=== PATIENT | male | born 1985 | race Caucasian/White ===

== ENCOUNTER 2016-06-15 01:41 | Emergency (ER) | payer OTHER ==
--- NOTE | 2016-06-15 04:12 | ED ORDER SUMMARY ---
..... Patient: AUSTIN CHERRY OrderSheet [facility] VisitID: [id number] [place] [address] 30y, M Registration Date/Time: 06/15/2016 ORDER SHEET Weight: 86.1 kg (stated) Allergies: No Known Drug Allergy GENERAL ORDERS: CBC w Diff Urgent (01:52 06/15/2016 Natalie Hernandez) (Ack 1:55 PWeiler ER Tech1) (2:32 PWeiler ER Tech1) CMP Urgent (01:52 06/15/2016 Natalie Hernandez) (Ack 1:55 PWeiler ER Tech1) (2:32 PWeiler ER Tech1) UA-Culture if indicated Urgent (:06/15/2016 Natalie Hernandez) (Ack 1:55 PWeiler ER Tech1) (2:32 PWeiler ER Tech1) CT Abd/Pel wo Cont Urgent (02:48 06/15/2016 Natalie Hernandez) (Ack 2:50 PWeiler ER Tech1) (3:06 Suzanna) MEDICATION ORDERS: Levofloxacin PO 500 mg (NOW) (03:26 06/15/2016 Natalie Hernandez) (Ack 3:30 HSoule) (3:34 HSoule) IV FLUIDS: IV NS : initial bolus none -, then 1000 mL/hr for X1 (NOW) (01:52 06/15/2016 Nataile Hernandez) (Ack 2:12 HSoule) (2:13 HSoule) Toradol IV 30 mg (NOW) (:52 06/15/2016 Natalie Hernandez) (Ack 2:12 HSoule) (2:13 HSoule) Zofran IV 4 mg (NOW) (02:01 06/15/2016 Natalie Hernandez) (Ack 2:12 HSoule) (2:13 HSoule) ORDER SHEET NOTES: [Electronically signed by Karl Linares Dr. (03:45 06/15/2016)] [Electronically signed by Danyell Gill (04:53 06/15/2016)] [Electronically locked/signed by Danyell Gill (04:53 06/15/2016)]
--- NOTE | 2016-06-15 04:12 | ED CLINICAL REPORT ---
Clinical Report - Physicians/Mid Levels [facility] [address] [place] [address] 06/15/2016 1:43 Patient: AUSTIN CHERRY Time Seen: 01:47; initial patient contact. Arrived- By private vehicle. Historian- patient. HISTORY OF PRESENT ILLNESS Chief Complaint: FLANK PAIN. At its maximum, severity described as moderate. When seen in the E.D., severity described as moderate. Modifying factors. Not worsened by anything. Not relieved by anything. It is described as "pain" and it is described as located in the right flank and radiating to the groin. This started last night and is still present and worsening. It was abrupt in onset and has been intermittent. The patient has had nausea and loss of appetite. No vomiting or diarrhea. No recent travel. Similar symptoms previously: Many times. Recent medical care: Not recently seen/assessed. REVIEW OF SYSTEMS No difficulty with urination, urinary frequency, fever, chills or hematuria. He has had pain on urination. All systems otherwise negative, except as recorded above. PAST HISTORY Corneal Abrasion. Hypertension. Ureterolithiasis. Urinary Calculi. Nephrolithiasis. Corneal Foreign Body. Eye Injury. ADDITIONAL SURGERIES: Head surgery. SOCIAL HISTORY Never smoker. No alcohol use or drug use. ADDITIONAL NOTES The nursing notes have been reviewed. PHYSICAL EXAM Vital Signs: 06/15/2016 01:49 BP: 137/87. HR: 66. RR: 20. O2 saturation: 100%. Temp: 97.9 F. Pain level now: 6/10. Have been reviewed as normal. Appearance: Alert. Oriented X3. No acute distress. Eyes: Eyes normal inspection. ENT: Dry mucous membranes present. CVS: Normal heart rate and rhythm. Heart sounds normal. Respiratory: No respiratory distress. Breath sounds normal. Abdomen: Soft. Moderate tenderness in the right side of the abdomen. No guarding, rebound tenderness or Davis's sign present. Bowel sounds normal. No organomegaly. No mass. Back: Mild CVA tenderness on the right. Skin: Skin warm and dry. Normal skin color. No rash. Extremities: No lower extremity edema. Neuro: Oriented X 3. LABS, X-RAYS, AND EKG Abdominal CT: R hydroureteronephrosis w/ 1-2 mm UVJ stone w/ perinephric fat stranding. Study type: renal stone evaluation. Abdominal CT performed without contrast. The study was independently viewed by me, interpreted by the radiologist and discussed with the radiologist. Prior studies were not available for comparison. Interpretation time: 03:22. Laboratory Tests: UA-Culture if indicated: (BLANCA: 06/15/2016 02:00) ( MsgRcvd 06/15/2016 02:18) Final results Test Result Flag Units (Reference) URINE COLOR YELLOW URINE APPEARANCE CLEAR URINE GLUCOSE NEGATIVE (NEGATIVE) URINE BILIRUBIN NEGATIVE (NEGATIVE) URINE KETONE NEGATIVE (NEGATIVE) URINE SPECIFIC GRAVITY 1.020 (1.010-1.030) URINE PH 6.5 (5.0-8.0) URINE PROTEIN NEGATIVE (NEGATIVE) URINE UROBILINOGEN 0.2 EU/dL (0.2-1.0) URINE NITRITE NEGATIVE (NEGATIVE) URINE BLOOD NEGATIVE (NEGATIVE) URINE LEUK ESTERASE NEGATIVE (NEGATIVE) URINE RBC NONE SEEN rbc/hpf (0-1) URINE WBC RARE wbc/hpf (0-1) URINE EPITHELIAL CELLS NONE SEEN EPI/hpf (0-5) URINE BACTERIA NONE SEEN (NONE SEEN) URINE COMMENT CULT NOT INDICATED URINE CULTURES ARE SET-UP BASED ON THE FOLLOWING CRITERIA:POSITIVE NITRITEPOSITIVE LEUKOCYTE ESTERASEGREATER THAN 10 WHITE BLOOD CELLSMODERATE (2+) OR GREATER BACTERIA CBC w Diff: (BLANCA: 06/15/2016 02:05) ( MsgRcvd 06/15/2016 02:21) Final results Test Result Flag Units (Reference) WHITE BLOOD COUNT 9.2 K/uL (4.5-11.5) RED BLOOD COUNT 4.59 M/uL (4.50-5.90) HEMOGLOBIN 14.4 gm/dL (13.5-17.5) HEMATOCRIT 41.9 % (41.0-53.0) MEAN CELL VOLUME 91 fL (80-100) MEAN CORPUSCULAR HGB 31 pg (26-34) MEAN CORPUSCULAR HGB CONC 34 g/dL (31-37) RED CELL DISTRIBUTION WIDTH 12.8 % (11.6-14.8) PLATELET COUNT 199 K/uL (150-400) NEUTROPHIL % 68.7 % (50-75) LYMPH % 20.6 L % (25-40) MONO % 7.1 % (3-14) EOSINOPHIL % 3.3 % (0-4) BASOPHIL % 0.3 % (0-2) CMP: (BLANCA: 06/15/2016 02:05) ( MsgRcvd 06/15/2016 02:33) Final results Test Result Flag Units (Reference) GLUCOSE 147 H mg/dL (70-110) BUN 20 H mg/dL (7-18) CREATININE 1.2 mg/dL (0.6-1.3) Estimated GFR >60 mL/min Estimated GFR- >60 mL/min Note: Persistent reduction over 3 months in eGFR<60 mL/min/1.73 m2 defines CKD. Patients with eGFR values>=60 mL/min/1.73 m2 may also have CKD if evidence ofpersistent proteinuria. Additional information may be foundat www.kidney.org. SODIUM 138 mmol/L (136-145) POTASSIUM 3.2 L mmol/L (3.5-5.1) CHLORIDE 101 mmol/L (98-107) CARBON DIOXIDE 27 mmol/L (21-32) CALCIUM 8.5 mg/dL (8.5-10.1) TOTAL PROTEIN 6.9 g/dL (6.4-8.2) ALBUMIN 3.9 g/dL (3.3-5.0) BILIRUBIN, TOTAL 0.9 mg/dL (0.0-1.0) ALKALINE PHOSPHATASE 80 U/L (46-116) AST (SGOT) 18 U/L (15-37) ALT (SGPT) 34 U/L (12-78) . CLINICAL IMPRESSION Ureterolithiasis (single stone) in the right ureter with renal colic and acute pyelonephritis. INSTRUCTIONS Your Current Medications: CONTINUE TAKING THE FOLLOWING MEDICATIONS: None*. Prescription Medications: Hydrocodone/APAP 5mg / 325mg: take 1 orally every 6 hours as needed for pain. Dispense fifteen (15). No refill. Zofran (orally disintegrating tablets) 4 mg: take 1 orally every 6 hours as needed for nausea and vomiting. Dispense ten (10). No refill. Substitution is permissible. Levaquin 500 mg: take 1 tab orally every day for 6 days. No refills. Substitution is permissible. Follow-up: Screening today revealed the patient's blood pressure to be in the pre-hypertensive range. The patient should follow up with a primary care provider for blood pressure management. Follow-up with: [facility], [facility], , [address] [place] [address], [address] [place] [address] Follow up in about three days. Call for an appointment. (Electronically signed by Karl Linares Dr. 06/15/2016 3:45)
--- NOTE | 2016-06-15 04:12 | ED CLINICAL REPORT ---
Clinical Report - Physicians/Mid Levels [facility] [address] [place] [address] 06/15/2016 1:43 Patient: AUSTIN CHERRY Time Seen: 01:47; initial patient contact. Arrived- By private vehicle. Historian- patient. HISTORY OF PRESENT ILLNESS Chief Complaint: FLANK PAIN. At its maximum, severity described as moderate. When seen in the E.D., severity described as moderate. Modifying factors. Not worsened by anything. Not relieved by anything. It is described as "pain" and it is described as located in the right flank and radiating to the groin. This started last night and is still present and worsening. It was abrupt in onset and has been intermittent. The patient has had nausea and loss of appetite. No vomiting or diarrhea. No recent travel. Similar symptoms previously: Many times. Recent medical care: Not recently seen/assessed. REVIEW OF SYSTEMS No difficulty with urination, urinary frequency, fever, chills or hematuria. He has had pain on urination. All systems otherwise negative, except as recorded above. PAST HISTORY Corneal Abrasion. Hypertension. Ureterolithiasis. Urinary Calculi. Nephrolithiasis. Corneal Foreign Body. Eye Injury. ADDITIONAL SURGERIES: Head surgery. SOCIAL HISTORY Never smoker. No alcohol use or drug use. ADDITIONAL NOTES The nursing notes have been reviewed. PHYSICAL EXAM Vital Signs: 06/15/2016 01:49 BP: 137/87. HR: 66. RR: 20. O2 saturation: 100%. Temp: 97.9 F. Pain level now: 6/10. Have been reviewed as normal. Appearance: Alert. Oriented X3. No acute distress. Eyes: Eyes normal inspection. ENT: Dry mucous membranes present. CVS: Normal heart rate and rhythm. Heart sounds normal. Respiratory: No respiratory distress. Breath sounds normal. Abdomen: Soft. Moderate tenderness in the right side of the abdomen. No guarding, rebound tenderness or Davis's sign present. Bowel sounds normal. No organomegaly. No mass. Back: Mild CVA tenderness on the right. Skin: Skin warm and dry. Normal skin color. No rash. Extremities: No lower extremity edema. Neuro: Oriented X 3. LABS, X-RAYS, AND EKG Abdominal CT: R hydroureteronephrosis w/ 1-2 mm UVJ stone w/ perinephric fat stranding. Study type: renal stone evaluation. Abdominal CT performed without contrast. The study was independently viewed by me, interpreted by the radiologist and discussed with the radiologist. Prior studies were not available for comparison. Interpretation time: 03:22. Laboratory Tests: UA-Culture if indicated: (BLANCA: 06/15/2016 02:00) ( MsgRcvd 06/15/2016 02:18) Final results Test Result Flag Units (Reference) URINE COLOR YELLOW URINE APPEARANCE CLEAR URINE GLUCOSE NEGATIVE (NEGATIVE) URINE BILIRUBIN NEGATIVE (NEGATIVE) URINE KETONE NEGATIVE (NEGATIVE) URINE SPECIFIC GRAVITY 1.020 (1.010-1.030) URINE PH 6.5 (5.0-8.0) URINE PROTEIN NEGATIVE (NEGATIVE) URINE UROBILINOGEN 0.2 EU/dL (0.2-1.0) URINE NITRITE NEGATIVE (NEGATIVE) URINE BLOOD NEGATIVE (NEGATIVE) URINE LEUK ESTERASE NEGATIVE (NEGATIVE) URINE RBC NONE SEEN rbc/hpf (0-1) URINE WBC RARE wbc/hpf (0-1) URINE EPITHELIAL CELLS NONE SEEN EPI/hpf (0-5) URINE BACTERIA NONE SEEN (NONE SEEN) URINE COMMENT CULT NOT INDICATED URINE CULTURES ARE SET-UP BASED ON THE FOLLOWING CRITERIA:POSITIVE NITRITEPOSITIVE LEUKOCYTE ESTERASEGREATER THAN 10 WHITE BLOOD CELLSMODERATE (2+) OR GREATER BACTERIA CBC w Diff: (BLANCA: 06/15/2016 02:05) ( MsgRcvd 06/15/2016 02:21) Final results Test Result Flag Units (Reference) WHITE BLOOD COUNT 9.2 K/uL (4.5-11.5) RED BLOOD COUNT 4.59 M/uL (4.50-5.90) HEMOGLOBIN 14.4 gm/dL (13.5-17.5) HEMATOCRIT 41.9 % (41.0-53.0) MEAN CELL VOLUME 91 fL (80-100) MEAN CORPUSCULAR HGB 31 pg (26-34) MEAN CORPUSCULAR HGB CONC 34 g/dL (31-37) RED CELL DISTRIBUTION WIDTH 12.8 % (11.6-14.8) PLATELET COUNT 199 K/uL (150-400) NEUTROPHIL % 68.7 % (50-75) LYMPH % 20.6 L % (25-40) MONO % 7.1 % (3-14) EOSINOPHIL % 3.3 % (0-4) BASOPHIL % 0.3 % (0-2) CMP: (BLANCA: 06/15/2016 02:05) ( MsgRcvd 06/15/2016 02:33) Final results Test Result Flag Units (Reference) GLUCOSE 147 H mg/dL (70-110) BUN 20 H mg/dL (7-18) CREATININE 1.2 mg/dL (0.6-1.3) Estimated GFR >60 mL/min Estimated GFR- >60 mL/min Note: Persistent reduction over 3 months in eGFR<60 mL/min/1.73 m2 defines CKD. Patients with eGFR values>=60 mL/min/1.73 m2 may also have CKD if evidence ofpersistent proteinuria. Additional information may be foundat www.kidney.org. SODIUM 138 mmol/L (136-145) POTASSIUM 3.2 L mmol/L (3.5-5.1) CHLORIDE 101 mmol/L (98-107) CARBON DIOXIDE 27 mmol/L (21-32) CALCIUM 8.5 mg/dL (8.5-10.1) TOTAL PROTEIN 6.9 g/dL (6.4-8.2) ALBUMIN 3.9 g/dL (3.3-5.0) BILIRUBIN, TOTAL 0.9 mg/dL (0.0-1.0) ALKALINE PHOSPHATASE 80 U/L (46-116) AST (SGOT) 18 U/L (15-37) ALT (SGPT) 34 U/L (12-78) . CLINICAL IMPRESSION Ureterolithiasis (single stone) in the right ureter with renal colic and acute pyelonephritis. INSTRUCTIONS Your Current Medications: CONTINUE TAKING THE FOLLOWING MEDICATIONS: None*. Prescription Medications: Hydrocodone/APAP 5mg / 325mg: take 1 orally every 6 hours as needed for pain. Dispense fifteen (15). No refill. Zofran (orally disintegrating tablets) 4 mg: take 1 orally every 6 hours as needed for nausea and vomiting. Dispense ten (10). No refill. Substitution is permissible. Levaquin 500 mg: take 1 tab orally every day for 6 days. No refills. Substitution is permissible. Follow-up: Screening today revealed the patient's blood pressure to be in the pre-hypertensive range. The patient should follow up with a primary care provider for blood pressure management. Follow-up with: [facility], [facility], , [address] [place] [address], [address] [place] [address] Follow up in about three days. Call for an appointment. (Electronically signed by Karl Linares Dr. 06/15/2016 3:45)
--- NOTE | 2016-06-15 04:12 | ED NURSING NOTES ---
Clinical Report - Nurses [facility] [place] [address] 06/15/2016 1:43 Patient: AUSTIN CHERRY TRIAGE Triage time 01:49 Jun 15 2016. Acuity: LEVEL 3. Chief Complaint: PAIN WITH URINATION and (Right flank pain). 01:53 06/15/16. SEPSIS SCREEN: Sepsis Screen: negative. Negative (no infection suspected/documented). NYASIA COMA SCORE: Nyasia Coma Scale: 15- eyes open spontaneously (4); best verbal response- oriented x 4 (5); best motor response- obeys commands (6). --01:53 Danyell Gill 01:49 06/15/16. BP: 137/87. HR: 66. RR: 20. O2 saturation: 100% on room air. Temp: 97.9 F (oral). Pain level now: 07/28. --01:53 Danyell Gill. Weight: 86.1 kg stated. Height/Length: 73 inches Per Patient. BMI: 25. --01:52 Danyell Gill. Medications None. --01:51 Danyell Gill. Medication/allergy information source: the patient. --01:53 Danyell Gill. Allergies No Known Drug Allergy. --01:51 Danyell Gill. History Arrived by private vehicle. Historian: patient. Unaccompanied. Primary physician (none). This started today. ( Patient reported around 6 pm he began having some right flank pain and lower back pain. He reports burning when he urinates. He reports history of kidney stones. He also states he feels a bit shaky). He has had discomfort with urination. PAST MEDICAL HX: Immunizations: up-to-date. SOCIAL HX: Never smoker. No alcohol use or drug use. No infectious disease exposure. ABUSE ASSESSMENT: No report of abuse. --01:53 Danyell Gill FALL RISK ASSESSMENT: Fall risk assessment completed. No fall risk identified. NUTRITIONAL RISK ASSESSMENT: The nutritional risk assessment revealed no deficiencies. FUNCTIONAL ASSESSMENT: Functional assessment: no impairments noted. LEARNING NEEDS ASSESSMENT: The learning needs assessment revealed no barriers. SKIN INTEGRITY ASSESSMENT: Skin integrity risk assessment completed. No skin integrity risk identified. --:53 Danyell Gill. PROBLEMS: Corneal Abrasion. Hypertension. Ureterolithiasis. Urinary Calculi. Nephrolithiasis. Corneal Foreign Body. Eye Injury. Immunizations. --01:52 Jairo Danyell. ADDITIONAL SURGERIES: Head surgery. --01:52 Danyell Gill. Interventions ID band on patient. To treatment room. --:53 JairoYaakovDanyell. PHYSICAL ASSESSMENT Ambulatory to room. Patient gowned. GENERAL / NEURO / PSYCH: Alert. Oriented X 4. Appears in no acute distress. HEENT: Mucous membranes are pink. RESPIRATORY: Respirations not labored. CVS: Normal heart rate and rhythm. GI / : Abdomen soft. SKIN: Skin is warm and dry. BACK: ( Right lumbar region tenderness). --:54 JairoDanyell white. NURSING PROGRESS NOTES :54 06/15/16. Pulse oximeter and NIBP monitor placed on patient; monitor alarms on. Patient gowned. Reassurance given to the patient. Two patient identifiers checked. Call light placed in reach. Side rails up x 1. Bed placed in lowest position. Brakes of bed on. Patient ready for evaluation- chart flagged and ED physician notified. --:54 Danyell Gill Patient ID band checked for patient name and birthdate: patient confirmed. Instructions provided to collect clean catch urine and patient verbalized understanding. Clean catch urine collected with return of yellow-colored clear urine; sample sent to lab for urinalysis and culture. Specimen labeled in the presence of the patient. --01:54 Yaakov Gillnah :58 06/15/2016 Started bag #1 1000 mL IV Fluids IV NS (Saline); at 1000 mL/hr over 1 hour(s) via site #1. Allergies verified and confirmed 5 rights. IV patency established. IV site checked: no pain, redness, or swelling. IV flushed thoroughly pre- and post-medication administration. --02:13 Jairo Danyell :58 06/15/2016 Toradol IVP 30 mg given over 1 minute(s) via site #1. Allergies verified and confirmed 5 rights. IV patency established. IV site checked: no pain, redness, or swelling. IV flushed thoroughly pre- and post-medication administration. IVP given by RN. --02:13 Danyell Gill 01:58 06/15/2016 Zofran (Ondansetron HCl) IVP 4 mg given over 1 minute(s) via site #1. Allergies verified and confirmed 5 rights. IV patency established. IV site checked: no pain, redness, or swelling. IV flushed thoroughly pre- and post-medication administration. IVP given by RN. --02:13 Danyell Gill 02:03 06/15/2016 Site #1 started via IV in the right antecubital space with an 20g angiocath, with aseptic technique and good blood return; one attempt. Blood drawn: rainbow set. Labeled in the presence of the patient and sent to the lab. Saline lock flushed with 10 mL saline. --02:13 Danyell Gill 03:34 06/15/2016 Levofloxacin PO Tablets 500 mg given. Allergies verified and confirmed 5 rights. --03:34 Danyell Gill 03:34 06/15/16. BP: 124/88. HR: 65. RR: 20. O2 saturation: 99%. Pain level now: 03/30. --03:35 Danyell Gill 04:00 06/15/2016 IV Fluids IV NS Discontinued: bag #1 completed. Total amount infused: 1000 mL. IV patency established. IV site checked: no pain, redness, or swelling. IV flushed thoroughly. --04:52 Danyell Gill. DISPOSITION / DISCHARGE 04:10 06/15/16. BP: 122/80. HR: 74. RR: 20. O2 saturation: 100% on room air. Temp: 97.6 F (oral). Pain level now: 03/30. --04:52 Danyell Gill 04:00 06/15/2016 Site #1 removed upon discharge. Catheter intact. Bandaid applied. --04:52 Danyell Gill 04:10 06/15/16. Condition at departure: stable. The goals identified in the patient's plan of care were met. No learning barriers present. Discharge instructions provided and reviewed. Reviewed warnings (Do not drive while on sedative medications). Reviewed medication(s) side effects, precautions, dosing and course information. Prescription(s) given to the patient. Reviewed need for increased fluid intake. Patient verbalized understanding. Written instructions provided in Spanish. ( Follow up with [facility] in three days, contact information provided. Return if symptoms worsen. Rest and drink plenty of fluids. Patient verbalized understanding and had no additional questions at this time.). The patient was discharged by the physician. He was discharged home and unaccompanied at time of discharge. He left the Emergency Department ambulatory and via private vehicle. Patient driving. FALL RISK ASSESSMENT: Fall risk assessment completed. No fall risk identified. --04:52 Danyell Gill. Locked/Released at 06/15/2016 4:53 by Danyell Gill,
--- NOTE | 2016-06-15 04:12 | ED ORDER SUMMARY ---
..... Patient: AUSTIN CHERRY OrderSheet [facility] VisitID: [id number] [place] [address] 30y, M Registration Date/Time: 06/15/2016 ORDER SHEET Weight: 86.1 kg (stated) Allergies: No Known Drug Allergy GENERAL ORDERS: CBC w Diff Urgent (01:52 06/15/2016 Natalie Hernandez) (Ack 1:55 PWeiler ER Tech1) (2:32 PWeiler ER Tech1) CMP Urgent (01:52 06/15/2016 Natalie Hernandez) (Ack 1:55 PWeiler ER Tech1) (2:32 PWeiler ER Tech1) UA-Culture if indicated Urgent (:06/15/2016 Natalie Hernandez) (Ack 1:55 PWeiler ER Tech1) (2:32 PWeiler ER Tech1) CT Abd/Pel wo Cont Urgent (02:48 06/15/2016 Natalie Hernandez) (Ack 2:50 PWeiler ER Tech1) (3:06 Suzanna) MEDICATION ORDERS: Levofloxacin PO 500 mg (NOW) (03:26 06/15/2016 Natalie Hernandez) (Ack 3:30 HSoule) (3:34 HSoule) IV FLUIDS: IV NS : initial bolus none -, then 1000 mL/hr for X1 (NOW) (01:52 06/15/2016 Natalie Hernandez) (Ack 2:12 HSoule) (2:13 HSoule) Toradol IV 30 mg (NOW) (:52 06/15/2016 Natalie Hernandez) (Ack 2:12 HSoule) (2:13 HSoule) Zofran IV 4 mg (NOW) (02:01 06/15/2016 Natalie Hernandez) (Ack 2:12 HSoule) (2:13 HSoule) ORDER SHEET NOTES: [Electronically signed by Kalr Linares Dr. (03:45 06/15/2016)] [Electronically signed by Danyell Gill (04:53 06/15/2016)] [Electronically locked/signed by Danyell Gill (04:53 06/15/2016)]
--- NOTE | 2016-06-15 04:53 | ED DISCHARGE INSTRUCTIONS ---
Patient: AUSTIN CHERRY General Instructions [facility] VisitID: [id number] [place] [id number] 30y, M Registration Date/Time: 06/15/2016 Ureterolithiasis (single stone) in the right ureter with renal colic and acute pyelonephritis. INSTRUCTIONS Your Current Medications: CONTINUE TAKING THE FOLLOWING MEDICATIONS: None*. Prescription Medications: Hydrocodone/APAP 5mg / 325mg: take 1 orally every 6 hours as needed for pain. Dispense fifteen (15). No refill. Zofran (orally disintegrating tablets) 4 mg: take 1 orally every 6 hours as needed for nausea and vomiting. Dispense ten (10). No refill. Substitution is permissible. Levaquin 500 mg: take 1 tab orally every day for 6 days. No refills. Substitution is permissible. Follow-up: Screening today revealed the patient's blood pressure to be in the pre-hypertensive range. The patient should follow up with a primary care provider for blood pressure management. Follow-up with: [facility], [facility], , [address] [place] [address], [address], [place] [id number] Follow up in about three days. Call for an appointment. ADDITIONAL INFORMATION Kidney Stone (W/ Colic) The sharp cramping pain and nausea/vomiting that you have is due to a small stone which has formed in the kidney and is now passing down a narrow tube (ureter) on its way to your bladder. Once it reaches your bladder, the pain will stop. The stone may pass in your urine stream in one piece. [The size may be 1/16" to 1/4" (1-6mm)]. Or, the stone may also break up into corin fragments which you may not even notice. Once you have had a kidney stone, you are at risk for developing another one in the future. Home Care: Drink plenty of fluids (at least 8 to 10 glasses of water a day). Most stones will pass on their own, but may take from a few hours to a few days. Sometimes the stone is too large to pass by itself and special methods will have to be used to remove the stone. Each time you urinate, do so in a jar. Pour the urine from the jar through the strainer and into the toilet. Continue doing this until 24 hours after your pain stops. By then, if there was a kidney stone, it should pass from your bladder. Some stones dissolve into sand-like particles and pass right through the strainer. In that case, you wont ever see a stone. Save any stone that you find in the strainer and bring it to your doctor for analysis. It may be possible to prevent certain types of stones from forming. Therefore, it is important to know what kind of stone you have. Try to stay as active as possible since this will help the stone pass. Do not stay in bed unless your pain prevents you from getting up. You may notice a red, pink or brown color to your urine. This is normal while passing a kidney stone. Follow Up with your doctor or return to this facility if the pain lasts more than 48 hours. Get Prompt Medical Attention if any of the following occur: Pain that is not controlled by the medicine given Repeated vomiting or unable to keep down fluids Weakness, dizziness or fainting Fever of 100.4F (38C) or higher, or as directed by your healthcare provider Passage of solid red or brown urine (can't see through it) or urine with lots of blood clots Unable to pass urine for 8 hours and increasing bladder pressure Kidney Infection [Adult, Female] An infection of the kidney is also called "pyelonephritis". It usually starts as a bladder infection ("cystitis") which spreads to the kidneys. Pyelonephritis is more serious than a bladder infection. It can cause severe illness if not treated properly. The usual symptoms include an aching pain in the back, side or lower abdomen. Other symptoms may include fever, chills, nausea, vomiting, an urge to urinate and a burning sensation when passing urine. Home Care: Stay home from work or school. Rest in bed until your fever breaks and you are feeling better. Drink lots of fluid (at least 6-8 glasses a day, unless you must restrict fluids for other medical reasons). This will force the medicine into your urinary system and flush the bacteria out of your body. Avoid sexual intercourse until you have finished all of your medicine and your symptoms have gone away. Avoid caffeine, alcohol and spicy foods which may irritate the kidney and bladder. You may use acetaminophen (Tylenol) or ibuprofen (Motrin, Advil) to control pain, unless another pain medicine was prescribed. [NOTE: If you have chronic liver or kidney disease or ever had a stomach ulcer or GI bleeding, talk with your doctor before using these medicines.] Follow Up with your doctor or as advised by our staff for a repeat urine test in 10 days. This will ensure that your infection is fully cleared. [NOTE: If you had an X-ray or CT scan, it will be reviewed by a specialist. You will be notified of any new findings that may affect your care.] Get Prompt Medical Attention if any of the following occur: Fever over 100.4F (38.0C) after 48 hours of treatment No improvement by the third day of treatment Increasing back or abdominal pain Repeated vomiting or inability to take oral medicine Weakness, dizziness or fainting Hydrocodone Bitartrate, Acetaminophen Oral tablet What is this medicine? ACETAMINOPHEN; HYDROCODONE (a set a GERARDO natalie fen; jordan droe KOE done) is a pain reliever. It is used to treat mild to moderate pain. How should I use this medicine? Take this medicine by mouth. Swallow it with a full glass of water. Follow the directions on the prescription label. If the medicine upsets your stomach, take the medicine with food or milk. Do not take more than you are told to take. Talk to your traffic analysis technician regarding the use of this medicine in children. This medicine is not approved for use in children. What side effects may I notice from receiving this medicine? Side effects that you should report to your doctor or health direct support professional caregiver as soon as possible: allergic reactions like skin rash, itching or hives, swelling of the face, lips, or tongue breathing problems confusion feeling faint or lightheaded, falls stomach pain yellowing of the eyes or skin Side effects that usually do not require medical attention (report to your doctor or health direct support professional caregiver if they continue or are bothersome): nausea, vomiting stomach upset What may interact with this medicine? alcohol antihistamines isoniazid medicines for depression, anxiety, or psychotic disturbances medicines for sleep muscle relaxants naltrexone narcotic medicines (opiates) for pain phenobarbital ritonavir tramadol What if I miss a dose? If you miss a dose, take it as soon as you can. If it is almost time for your next dose, take only that dose. Do not take double or extra doses. Where should I keep my medicine? Keep out of the reach of children. This medicine can be abused. Keep your medicine in a safe place to protect it from theft. Do not share this medicine with anyone. Selling or giving away this medicine is dangerous and against the law. Store at room temperature between 15 and 30 degrees C (59 and 86 degrees F). Protect from light. Keep container tightly closed. Throw away any unused medicine after the expiration date. Discard unused medicine and used packaging carefully. Pets and children can be harmed if they find used or lost packages. What should I tell my health care provider before I take this medicine? They need to know if you have any of these conditions: brain tumor Crohn's disease, inflammatory bowel disease, or ulcerative colitis drink more than 3 alcohol-containing drinks per day drug abuse or addiction head injury heart or circulation problems kidney disease or problems going to the bathroom liver disease lung disease, asthma, or breathing problems an unusual or allergic reaction to acetaminophen, hydrocodone, other opioid analgesics, other medicines, foods, dyes, or preservatives or trying to get breast-feeding What should I watch for while using this medicine? Tell your doctor or health direct support professional caregiver if your pain does not go away, if it gets worse, or if you have new or a different type of pain. You may develop tolerance to the medicine. Tolerance means that you will need a higher dose of the medicine for pain relief. Tolerance is normal and is expected if you take the medicine for a long time. Do not suddenly stop taking your medicine because you may develop a severe reaction. Your body becomes used to the medicine. This does NOT mean you are addicted. Addiction is a behavior related to getting and using a drug for a non-medical reason. If you have pain, you have a medical reason to take pain medicine. Your doctor will tell you how much medicine to take. If your doctor wants you to stop the medicine, the dose will be slowly lowered over time to avoid any side effects. You may get drowsy or dizzy when you first start taking the medicine or change doses. Do not drive, use machinery, or do anything that may be dangerous until you know how the medicine affects you. Stand or sit up slowly. There are different types of narcotic medicines (opiates) for pain. If you take more than one type at the same time, you may have more side effects. Give your health care provider a list of all medicines you use. Your doctor will tell you how much medicine to take. Do not take more medicine than directed. Call emergency for help if you have problems breathing. The medicine will cause constipation. Try to have a bowel movement at least every 2 to 3 days. If you do not have a bowel movement for 3 days, call your doctor or health direct support professional caregiver. Too much acetaminophen can be very dangerous. Do not take Tylenol (acetaminophen) or medicines that contain acetaminophen with this medicine. Many non-prescription medicines contain acetaminophen. Always read the labels carefully. Ondansetron Oral disintegrating tablet What is this medicine? ONDANSETRON (on LOBO se lars) is used to treat nausea and vomiting caused by chemotherapy. It is also used to prevent or treat nausea and vomiting after surgery. How should I use this medicine? These tablets are made to dissolve in the mouth. Do not try to push the tablet through the foil backing. With dry hands, peel away the foil backing and gently remove the tablet. Place the tablet in the mouth and allow it to dissolve, then swallow. While you may take these tablets with water, it is not necessary to do so. Talk to your traffic analysis technician regarding the use of this medicine in children. Special care may be needed. What side effects may I notice from receiving this medicine? Side effects that you should report to your doctor or health direct support professional caregiver as soon as possible: allergic reactions like skin rash, itching or hives, swelling of the face, lips, or tongue breathing problems dizziness fast or irregular heartbeat feeling faint or lightheaded, falls fever and chills swelling of the hands and feet tightness in the chest Side effects that usually do not require medical attention (report to your doctor or health direct support professional caregiver if they continue or are bothersome): constipation or diarrhea headache What may interact with this medicine? Do not take this medicine with any of the following medications: -apomorphine -cisapride -dofetilide -dronedarone -pimozide -thioridazine -ziprasidone This medicine may also interact with the following medications: -carbamazepine -phenytoin -rifampicin -tramadol -other medicines that prolong the QT interval (cause an abnormal heart rhythm) What if I miss a dose? If you miss a dose, take it as soon as you can. If it is almost time for your next dose, take only that dose. Do not take double or extra doses. Where should I keep my medicine? Keep out of the reach of children. Store between 2 and 30 degrees C (36 and 86 degrees F). Throw away any unused medicine after the expiration date. What should I tell my health care provider before I take this medicine? They need to know if you have any of these conditions: heart disease history of irregular heartbeat liver disease low levels of magnesium or potassium in the blood an unusual or allergic reaction to ondansetron, granisetron, other medicines, foods, dyes, or preservatives or trying to get breast-feeding What should I watch for while using this medicine? Check with your doctor or health direct support professional caregiver as soon as you can if you have any sign of an allergic reaction. Levofloxacin Oral tablet What is this medicine? LEVOFLOXACIN (arielle lynn) is a quinolone antibiotic. It is used to treat certain kinds of bacterial infections. It will not work for colds, flu, or other viral infections. How should I use this medicine? Take this medicine by mouth with a full glass of water. Follow the directions on the prescription label. This medicine can be taken with or without food. Take your medicine at regular intervals. Do not take your medicine more often than directed. Do not skip doses or stop your medicine early even if you feel better. Do not stop taking except on your doctor's advice. A special MedGuide will be given to you by the pharmacist with each prescription and refill. Be sure to read this information carefully each time. Talk to your traffic analysis technician regarding the use of this medicine in children. While this drug may be prescribed for children as young as 6 months for selected conditions, precautions do apply. What side effects may I notice from receiving this medicine? Side effects that you should report to your doctor or health direct support professional caregiver as soon as possible: -allergic reactions like skin rash or hives, swelling of the face, lips, or tongue -changes in vision -confusion, nightmares or hallucinations -difficulty breathing -irregular heartbeat, chest pain -joint, muscle or tendon pain -pain or difficulty passing urine -persistent headache with or without blurred vision -redness, blistering, peeling or loosening of the skin, including inside the mouth -seizures -unusual pain, numbness, tingling, or weakness -vaginal irritation, discharge Side effects that usually do not require medical attention (report to your doctor or health direct support professional caregiver if they continue or are bothersome): -diarrhea -dry mouth -headache -stomach upset, nausea -trouble sleeping What may interact with this medicine? Do not take this medicine with any of the following medications: - arsenic trioxide - chloroquine - droperidol - medicines for irregular heart rhythm like amiodarone, disopyramide, dofetilide, flecainide, quinidine, procainamide, sotalol - some medicines for depression or mental problems like phenothiazines, pimozide, and ziprasidone This medicine may also interact with the following medications: - amoxapine -antacids - cisapride - dairy products - didanosine (ddI) buffered tablets or powder - haloperidol - multivitamins -NSAIDS, medicines for pain and inflammation, like ibuprofen or naproxen - retinoid products like tretinoin or isotretinoin - risperidone - some other antibiotics like clarithromycin or erythromycin - sucralfate - theophylline - warfarin What if I miss a dose? If you miss a dose, take it as soon as you remember. If it is almost time for your next dose, take only that dose. Do not take double or extra doses. Where should I keep my medicine? Keep out of the reach of children. Store at room temperature between 15 and 30 degrees C (59 and 86 degrees F). Keep in a tightly closed container. Throw away any unused medicine after the expiration date. What should I tell my health care provider before I take this medicine? They need to know if you have any of these conditions: cerebral disease irregular heartbeat kidney disease seizure disorder an unusual or allergic reaction to levofloxacin, other antibiotics or medicines, foods, dyes, or preservatives or trying to get breast-feeding What should I watch for while using this medicine? Tell your doctor or health direct support professional caregiver if your symptoms do not improve or if they get worse. Drink several glasses of water a day and cut down on drinks that contain caffeine. You must not get dehydrated while taking this medicine. You may get drowsy or dizzy. Do not drive, use machinery, or do anything that needs mental alertness until you know how this medicine affects you. Do not sit or stand up quickly, especially if you are an older patient. This reduces the risk of dizzy or fainting spells. This medicine can make you more sensitive to the sun. Keep out of the sun. If you cannot avoid being in the sun, wear protective clothing and use a sunscreen. Do not use sun lamps or tanning beds/booths. Contact your doctor if you get a sunburn. If you are a diabetic monitor your blood glucose carefully. If you get an unusual reading stop taking this medicine and call your doctor right away. Do not treat diarrhea with [id number] products. Contact your doctor if you have diarrhea that lasts more than 2 days or if the diarrhea is severe and watery. Avoid antacids, calcium, iron, and zinc products for 2 hours before and 2 hours after taking a dose of this medicine. You have been given the following additional information: Kidney Stone W/ Colic Pyelonephritis, Female (Adult) Hydrocodone Bitartrate, Acetaminophen Oral tablet Ondansetron Oral disintegrating tablet Levofloxacin Oral tablet (Electronically signed by Karl Linares Dr. 06/15/2016 3:45)
--- NOTE | 2016-06-15 04:53 | ED MAR SUMMARY ---
..... Medication Administration Record [facility] [address] [place] [address] Patient: AUSTIN CHERRY Visit ID: [id number] 30y, M Weight: 86.1 kg Height/Length: 73 in BMI: 25 ALLERGIES: No Known Drug Allergy Start 01:58 06/15/2016 Danyell Gill,, Stop 04:00 06/15/2016 Danyell Gill, Medication Administered: IV NS (SALINE), Dose: IV Fluids over 1 hour(s), Rate: 1000 mL/hr, Dispensed: 1000 mL bag, Site: #1. Medication Ordered: IV NS : initial bolus none -, then 1000 mL/hr for X1 (NOW). Given 01:06/15/2016 Danyell Gill, Medication Administered: TORADOL [IVP], Dose: 30 mg IVP over 1 minute(s), Site: #1. Medication Ordered: Toradol IV 30 mg (NOW). Given 01:58 06/15/2016 Danyell Gill, Medication Administered: ZOFRAN [IVP] (ONDANSETRON HCL), Dose: 4 mg IVP over 1 minute(s), Site: #1. Medication Ordered: Zofran IV 4 mg (NOW). Given 03:34 06/15/2016 Danyell Gill, Medication Administered: LEVOFLOXACIN [PO], Dose: 500 mg Tablets PO. Medication Ordered: Levofloxacin PO 500 mg (NOW).
--- NOTE | 2016-06-15 04:53 | ED MED RECONCILIATION SUMMARY ---
Patient: AUSTIN CHERRY Medication Reconciliation Report [facility] VisitID: [id number] [place] [address] 30y, M Registration Date/Time: 06/15/2016 Weight: 86.1 kg Height/Length: 73 in. BMI: 25.0 ALLERGIES: No Known Drug Allergy The patient's Home Medications are listed below: NONE. The source(s) of the original Home Medication information: patient The following Medications were given to the patient in the Emergency Department: IV NS IV Fluids bolus 0, then 1000 mL/hr, administered: 06/15/2016 1:58:00 AM Toradol [IVP] IVP 30 mg, administered: 06/15/2016 1:58:00 AM Zofran [IVP] IVP 4 mg, administered: 06/15/2016 1:58:00 AM Levofloxacin [PO] PO 500 mg, administered: 06/15/2016 3:34:00 AM The following Medications were prescribed to the patient: Hydrocodone/APAP 5mg / 325mg: take 1 orally every 6 hours as needed for pain. Dispense fifteen (15). No refill. -- Karl Linares Dr. Zofran (orally disintegrating tablets) 4 mg: take 1 orally every 6 hours as needed for nausea and vomiting. Dispense ten (10). No refill. Substitution is permissible. -- Karl Linares Dr. Levaquin 500 mg: take 1 tab orally every day for 6 days. No refills. Substitution is permissible. -- Karl Linares Dr.
--- NOTE | 2016-06-15 04:53 | ED MAR SUMMARY ---
..... Medication Administration Record [facility] [address] [place] [address] Patient: AUSTIN CHERRY Visit ID: [id number] 30y, M Weight: 86.1 kg Height/Length: 73 in BMI: 25 ALLERGIES: No Known Drug Allergy Start 01:58 06/15/2016 Danyell Gill,, Stop 04:00 06/15/2016 Danyell Gill, Medication Administered: IV NS (SALINE), Dose: IV Fluids over 1 hour(s), Rate: 1000 mL/hr, Dispensed: 1000 mL bag, Site: #1. Medication Ordered: IV NS : initial bolus none -, then 1000 mL/hr for X1 (NOW). Given 01:06/15/2016 Danyell Gill, Medication Administered: TORADOL [IVP], Dose: 30 mg IVP over 1 minute(s), Site: #1. Medication Ordered: Toradol IV 30 mg (NOW). Given 01:58 06/15/2016 Danyell Gill, Medication Administered: ZOFRAN [IVP] (ONDANSETRON HCL), Dose: 4 mg IVP over 1 minute(s), Site: #1. Medication Ordered: Zofran IV 4 mg (NOW). Given 03:34 06/15/2016 Danyell Gill, Medication Administered: LEVOFLOXACIN [PO], Dose: 500 mg Tablets PO. Medication Ordered: Levofloxacin PO 500 mg (NOW).
--- NOTE | 2016-06-15 04:53 | ED MED RECONCILIATION SUMMARY ---
Patient: AUSTIN CHERRY Medication Reconciliation Report [facility] VisitID: [id number] [place] [address] 30y, M Registration Date/Time: 06/15/2016 Weight: 86.1 kg Height/Length: 73 in. BMI: 25.0 ALLERGIES: No Known Drug Allergy The patient's Home Medications are listed below: NONE. The source(s) of the original Home Medication information: patient The following Medications were given to the patient in the Emergency Department: IV NS IV Fluids bolus 0, then 1000 mL/hr, administered: 06/15/2016 1:58:00 AM Toradol [IVP] IVP 30 mg, administered: 06/15/2016 1:58:00 AM Zofran [IVP] IVP 4 mg, administered: 06/15/2016 1:58:00 AM Levofloxacin [PO] PO 500 mg, administered: 06/15/2016 3:34:00 AM The following Medications were prescribed to the patient: Hydrocodone/APAP 5mg / 325mg: take 1 orally every 6 hours as needed for pain. Dispense fifteen (15). No refill. -- Karl Linares Dr. Zofran (orally disintegrating tablets) 4 mg: take 1 orally every 6 hours as needed for nausea and vomiting. Dispense ten (10). No refill. Substitution is permissible. -- Karl Linares Dr. Levaquin 500 mg: take 1 tab orally every day for 6 days. No refills. Substitution is permissible. -- Karl Linares Dr.
--- NOTE | 2016-06-15 07:16 | DIAGNOSTIC IMAGING REPORT ---
PROCEDURE: CT ABDOMEN/PELVIS W/O CONTRAST INDICATION: Right flank pain. TECHNIQUE: Noncontrast axial images were obtained of the entire abdomen and pelvis with sagittal and coronal reformations. COMPARISON: CT abdomen/pelvis 05/03/2013. FINDINGS: ABDOMEN: 2 mm right UVJ calculus with mild right hydroureteronephrosis and perinephric edema. There are three additional nonobstructing right renal calculi (1 - 2 mm). There three punctate nonobstructing left renal calculi. Nonspecific bowel gas pattern. Lung base are clear. Heart size is normal. Liver, gallbladder, pancreas, spleen, adrenal glands and abdominal aorta are normal. PELVIS: Normal appendix. No pelvic mass, inflammatory changes or free fluid. The bones are unremarkable. IMPRESSION: 1. 2 mm right UVJ calculus with mild right hydroureteronephrosis 2. Bilateral nonobstructing renal calculi 3. Preliminary results submitted by Dr. Syed, [facility] radiology. All CT scans at this facility use dose modulation, iterative reconstruction, and/or weight-based dosing when appropriate to reduce radiation dose to as low as reasonably achievable.
== END 2016-06-15 04:10 | disposition home or self-care (01) ==
LOC: ED SRH 01:41
DX: N20.1 Calculus of ureter (principal); N10 Acute pyelonephritis; N23 Unspecified renal colic; I10 Essential (primary) hypertension
CPT/HCPCS: 90004; 90100; 95059